=== PATIENT | female | born 1985 | race Caucasian/White ===

== ENCOUNTER → 2020-07-06 09:52 | Outpatient (CLI) | payer BC, SELFPAY ==
--- NOTE | ~2020-07-06 | XR_ITS ---
XR foot RT min 3V DATE: 07/06/2020 10:09 INDICATION: Right foot pain TECHNIQUE: 4 views COMPARISON: None FINDINGS: There is an acute nondisplaced transverse linear fracture through the metaphyseal area of t he proximal phalanx of the fifth toe. There is no angulation. No other fracture or dislocation is detected. IMPRESSION: Nondisplaced acute fracture of metaphysis of proximal phalanx of fifth toe Reviewed, dictated and finalized at location B. IMPRESSION: Nondisplaced acute fracture of metaphysis of proximal phalanx of fi fth toe
== END ==
PROVIDERS: PCP Pediatrics; Visit Provider Nurse Practitioner Family
DX: S92.514A Nondisplaced fracture of proximal phalanx of right lesser toe(s), initial encounter for closed fracture (principal); X58.XXXA Exposure to other specified factors, initial encounter
CPT/HCPCS: 73630

== ENCOUNTER → 2021-02-09 02:07 | Outpatient (CLI) | payer OTHER, SELFPAY ==
[2021-02-09 19:24] LABS: SARS-CoV-2 RNA PCR Negative
== END ==
PROVIDERS: Visit Provider Obstetrics & Gynecology
DX: Z01.812 Encounter for preprocedural laboratory examination (principal); Z20.822 Contact with and (suspected) exposure to COVID-19
CPT/HCPCS: 36415; 80048; 85027; 85610; 85730; C9803; U0003; U0005

== ENCOUNTER 2021-02-09 09:24 | Outpatient (CLI) | payer OTHER, SELFPAY ==
[2021-02-09 10:04] LABS: Hematocrit 39.5 % (37.0-47.0); Hemoglobin 13.6 g/dL (12.0-15.0); Mean Corpuscular HGB Conc 34.4 g/dl (32-36); Mean Corpuscular Hemoglobin 31.4 pg (26-34); Mean Corpuscular Volume 91.2 fl (80-100); Platelet Count Result 325 k/mm3 (150-375); Red Blood Count 4.33 M/mm3 (4.2-5.4); Red Cell Distribution Width 13.2 % (11.5-14.5); White Blood Count 7.5 K/mm3 (4.5-10.0)
[2021-02-09 10:17] LABS: Anion Gap 4 mmol/L (8-16); Blood Urea Nitrogen 12 mg/dL (7-17); Calcium 9.5 mg/dL (8.4-10.2); Carbon Dioxide 30 mmol/L (22-30); Chloride 104 mmol/L (98-107); Estimated Glomerular Filt Rate > 60; Glucose 83 mg/dL (65-105); Potassium 4.5 mmol/L (3.4-5.0); Sodium 138 mmol/L (137-145)
[2021-02-09 10:27] LABS: INR 0.9; Prothrombin Time 12.5 Seconds (11.1-14.7)
[2021-02-09 10:28] LABS: Partial Thromboplastin Time 25.7 SECONDS (22.3-36.8)
== END 2021-02-09 09:25 | disposition home or self-care (01) ==
LOC: ANHSURGERY 09:31
PROVIDERS: Anesthesiology; PCP Pediatrics; Visit Provider Obstetrics & Gynecology
DX: Z01.818 Encounter for other preprocedural examination (principal); N18.9 Chronic kidney disease, unspecified; R10.2 Pelvic and perineal pain
CPT/HCPCS: 36415; 80048; 85027; 85610; 85730

== ENCOUNTER 2021-02-12 01:47 | Day surgery (SDC) | payer OTHER, SELFPAY ==
[2021-02-04 17:17] VITALS: BMI 19.9
--- NOTE | 2021-02-11 09:13 | WPDANESEPPF ---
Anes - Initial Pre Proc Eval Procedure: Operation Date: 02/12/21 12:00 Proposed Procedures p Total Laparoscopic Hysterectomy - Addis Fay MD s Anterior Repair, Cystoscopy - Addis Fay MD Date/Time: 02/11/21 09:13 Surgeon: Addis Fay MD Pre Op Diagnosis: pelvic pain Patient Data Age: 35 Gender: F Height: 1.68 m Weight: 56 kg Allergies Allergy/AdvReac Type Severity Reaction Status Date / Time bacitracin Allergy Severe HIVES, Verified 02/12/21 10:29 WOUND NECROSIS neomycin Allergy Severe HIVES, Verified 02/12/21 10:29 WOUND NECROSIS balsam barry Allergy HIVES, Verified 02/12/21 10:29 WOUND NECROSIS nickel Allergy HIVES, Verified 02/12/21 10:29 WOUND NECROSIS propolis (bee glue) Allergy HIVES, Verified 02/12/21 10:29 WOUND NECROSIS SHELLAC Allergy HIVES, Uncoded 02/04/21 16:48 WOUND NECROSIS Home Medications Medication Instructions Recorded Confirmed Type Probiotic Blend 1 cap PO DAILY 09/30/19 02/12/21 History elderberry fruit and flower 1 cap PO DAILY 09/30/19 02/12/21 History multivitamin 1 tablet PO DAILY 09/30/19 02/12/21 History omega 3-pch-mma-fish oil [Fish Oil] 1 cap PO DAILY 09/30/19 02/12/21 History spironolactone 150 mg PO DAILY 09/30/19 02/12/21 History dexmethylphenidate [Focalin XR] 20 mg PO DAILY PRN 02/04/21 02/12/21 History trazodone 50 mg PO HS 02/04/21 02/12/21 History Patient hx anesthesia problems: none Family hx anesthesia problems: none PMFSH Past Medical History Medical History (Updated 02/11/21 @ 09:14 by Mckay Floyd DO) ADD (attention deficit disorder) Breast CA 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 Surgical History Surgical History (Updated 02/11/21 @ 09:14 by Mckay Floyd DO) History of bilateral mastectomy Social History Social History (System 01/22/21 @ 10:11 by Nicole Gallagher) Smoking packs per day: 1 Smoking cigarettes per day: 20.0 Years smoked: 10 Smoking pack-years: 10.00 Smoking status: Current some day smoker Tobacco type: cigarettes Spiritual care concerns: No Anes - Eval Final PreProcedure Day of Procedure 02/11/21 09:13 Patient weight: thin Heart: regular rate and rhythm Lungs: clear to auscultation and normal air movement Airway: Mallampati scale class II Neurological: alert and oriented Last oral intake: >/= 8 hours ASA classification: III Emergent: no Anesthetic plan: proceed Anesthesia type and monitoring: general ETT and standard monitoring Informed Consent: The patient's anesthetic plan and its attendant risks and benefits were discussed with the patient/family/POA. Questions were solicited and answers provided to the satisfaction of the patient/family/POA.
[2021-02-12] VITALS (10 sets, daily range): BP systolic 106–123; BP diastolic 54–74; PULSE 59–80; RESP 12–19; TEMP 36.2–37.3; O2SAT 100
[2021-02-12] MEDS: ACETAMINOPHEN 500 MG TABLET 1000 MG PO (10:36)
[2021-02-12] MEDS: KETOROLAC 15 MG/ML VIAL (*BKC) IV PUSH (10:49)
[2021-02-12] MEDS: LACTATED RINGERS 1,000 ML 30 ML IV CONT ×2 (10:50→16:30)
--- NOTE | 2021-02-12 11:57 | SUR.PREOP ---
Dr. Floyd notified that patient has earrings in that she is unable to remove. Removal waiver signed.
--- NOTE | 2021-02-12 12:17 | WPDHPUPDATE1 ---
History and Physical Update Update Date/Time: 02/12/21 12:17 History and Physical has been reviewed, including an updated exam of the patient. There are NO changes in the patient's condition. Risks, benefits, and alternatives have been discussed and questions answered. Patient agrees to proceed with procedure.
--- NOTE | 2021-02-12 12:22 | PM.HPGS ---
History of Present Illness History of Present Illness Consent: Risks, benefits, and alternatives have been discussed and questions answered. Patient agrees to proceed with procedure. Chief complaint: pelvic pain Narrative: Barbra Sanchez is a 35 year old female here for scheduled surgery. Has pelvic pain and vaginal prolapse. Discussed risk/benefits/alternatives discussed. Review of Systems Review of Systems: All systems reviewed & are unremarkable except as noted in HPI and below Constitutional: Constitutional: Reports as per HPI Eyes: Eyes: Reports no additional eye complaints ENT: Reports system reviewed and no additional complaints, except as documented Cardiovascular: Cardiovascular: Reports as per HPI and Reports no additional cardiovascular complaints Respiratory: Respiratory: Reports as per HPI and Reports no additional respiratory complaints Gastrointestinal: Gastrointestinal: Reports as per HPI Genitourinary: Genitourinary: Reports as per HPI Musculoskeletal: Musculoskeletal: Reports no additional musculoskeletal complaints Integumentary/Breasts: Skin/Breast: Reports system reviewed and no additional complaints, except as docu Neurologic: Reports system reviewed and no additional complaints, except as documented Psychiatric: Psychiatric: Reports no additional psychiatric complaints [facility] Past Medical History Medical History ADD (attention deficit disorder) Breast CA 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 Surgical History Surgical History History of bilateral mastectomy Social History Social History Smoking packs per day: 1 Smoking cigarettes per day: 20.0 Years smoked: 10 Smoking pack-years: 10.00 Smoking status: Current some day smoker Tobacco type: cigarettes Spiritual care concerns: No Meds Home Medications and Allergies Home Medications Medication Instructions Recorded Confirmed Type Probiotic Blend 1 cap PO DAILY 09/30/19 02/12/21 History elderberry fruit and flower 1 cap PO DAILY 09/30/19 02/12/21 History multivitamin 1 tablet PO DAILY 09/30/19 02/12/21 History omega 5-xme-gzf-fish oil [Fish Oil] 1 cap PO DAILY 09/30/19 02/12/21 History spironolactone 150 mg PO DAILY 09/30/19 02/12/21 History dexmethylphenidate [Focalin XR] 20 mg PO DAILY PRN 02/04/21 02/12/21 History trazodone 50 mg PO HS 02/04/21 02/12/21 History Allergies Allergy/AdvReac Type Severity Reaction Status Date / Time bacitracin Allergy Severe HIVES, Verified 02/12/21 10:29 WOUND NECROSIS neomycin Allergy Severe HIVES, Verified 02/12/21 10:29 WOUND NECROSIS balsam barry Allergy HIVES, Verified 02/12/21 10:29 WOUND NECROSIS nickel Allergy HIVES, Verified 02/12/21 10:29 WOUND NECROSIS propolis (bee glue) Allergy HIVES, Verified 02/12/21 10:29 WOUND NECROSIS SHELLAC Allergy HIVES, Uncoded 02/04/21 16:48 WOUND NECROSIS Vital Signs Vital Signs - 24 hr 02/12/21 10:58 Temperature 37.3 C Pulse Rate 60 Respiratory Rate 18 Blood Pressure 106/61 Pulse Oximetry 100 Exam Const: General: cooperative, healthy appearing and comfortable HENMT: Head: normal to inspection, normocephalic and atraumatic General nose exam: Normal external nose present and Normal nares present Face and sinus: normal facial exam Mouth: Yes Normal oral and palatal mucosa present Eyes: General: appearance normal, both eyes and all related structures Neck: Neck: normal visual inspection Chest: Chest palpation & inspection: normal inspection of the chest Resp: Effort & Inspection: normal respiratory effort and able to speak in complete sentences Cardio: Jugular venous distension: no JVD Palpation: normal PMI GI: Inspection: normal to inspection GI Palp: N
[2021-02-12] MEDS: ceFAZolin 2 GM/D5W 50 ML 2 GM/50 ML BAG IVPB (12:32)
[2021-02-12] MEDS: BUPIVACAINE/EPINEPHRINE 0.5% 30 ML VIAL INFILTRATE (14:21)
[2021-02-12] MEDS: KETOROLAC 30 MG/ML VIAL (*BKC) IV PUSH (14:50)
--- NOTE | 2021-02-12 15:10 | PM.PROC ---
Procedure Note - Detailed Date of procedure: 02/12/21 Pre-op diagnosis: pelvic pain Post-op diagnosis: same Procedure performed: Total laparoscopic hysterectomy with anterior repair and cystoscopy Description of procedure: Taken to operating room where general anesthesia was found to be adequate. She was prepared and draped in the dorsal supine position in [facility]. A speculum was used to visualize the cervix and a single toothed tenaculum placed on the anterior lip. 2 stay sutures were placed on the sides of the cervix and the uterus sounded to 7cm. So the appropriate stem was selected and affixed to the medium RFED cup and the Kisha was placed in the cervix. The speculum removed and tip ensured to be within the cavity. The sutures were tied around the KISHA cup to keep in place and the intrauterine balloons and vaginal occluder balloons were insufflated. Daily catheter was inserted and attention was then turned to the umbilicus. The umbilicus was injected with 0.5% marcaine with epinephrine in the infraumbilical fold. An incision was made in previous incision and veres needle easily inserted into the abdominal cavity after tenting the skin. Saline drop test was positive and intraabdominal entry pressure was -2mmHg. She was insufflated to 14mmHg and 5mm port placed with optical entry. She was then placed in Trendelenberg and pelvis visualized. There was a left ovarian cyst, follicular in nature, however the right ovary was normal. A suprapubic port was placed in a previous incision as well as a left lower quadrant port by injecting the skin with 0.5% marcaine with epinephrine, incising with a scalpel and 5mm ports placed with direct visualization. A 5mm ligasure used to cauterize the uteroovarian ligament on the left, then across the round ligament, then trhough the broad ligament all with good hemostasis. Once I reached the uterine side wall, the anterior and posterior leafs were opened up and the uterine artery skeletonized. Similarly this was done on the right. The anterir and posterior leaf incisions were met in the midline on both sides and the peritoneum pulled over the Fred cup. The J hook used to dissect the bladder down further to the visceropelvic fascia. Then the J hook used to make a circumferential incision at the cephalad edge of the FRED cup palpable through the tissue. Once the uterus and cervix was amputated, it was pulled through the vaginal incision with ease. There was no significant bleeding noted. So I then went vaginally and sutured the cuff closed with 5 figure of 8's. Cystoscopy was then performed and the bladder was intact and bilateral ureteral jets noted. I then started the anterior repair where the vesicourethral junction was grasp with Allis clamps then the mid portion of the cystocele grasp. 0.5% marcaine with epinephrine used to undermine the midline and a scalpel used to incise in the midline. The metzembaum scissors used to dissect the bladder off the vaginal epithelium and dissect the bladder off laterally. Combination of sharp and blunt dissection was used. Midline was incised further to the proximal most part of the cystoscele and the bladder further dissected back with blunt and sharp dissection. The bladder was then embricated with multiple layers of 0-vicryl suture. The redundant skin incised and discarded. The edges cauterized with Bovie and reapproximated with O-vicryl suture in several figure of 8 sutures. There was good hemostasis noted. Cystoscopy was again performed and the bladder was all intact and ureteral jets were both noted with strong stream. Vaginal packing placed and daily catheter replaced. The procedure at this point was complete. All sponge lap and needle counts were correct. EBL was <50cc. Anesthesia: GETA Surgeon: Addis Fay MD Estimated blood loss (mL): 50 Drains: No Packing: Yes (vaginal packing) Pathology: yes (uterus and cervix) Complications: No immediate complications
[2021-02-12] MEDS: fentaNYL CITRATE INJ (*CRX) 100 MCG/2 ML VIAL 25 MCG IV PUSH ×3 (15:21→15:50)
[2021-02-12] MEDS: diphenhydrAMINE HCl INJ 50 MG/ML VIAL 25 MG IV PUSH (15:40)
[2021-02-12] MEDS: diazePAM INJ (*CRX) 10 MG/2 ML SYRINGE 2.5 MG IV PUSH (16:00)
--- NOTE | 2021-02-12 17:35 | SUR.PHASEI ---
0112- Call to Dr. Fay to confirm medication orders for patient. Reviewed orders via telephone with Dr. Fay. Per MD place orders for Toradol, [place], Percocet, Fentanyl, and lidocaine patch, see orders in EMR. Patient's home medications do not need ordered per Dr. Fay with anticipated discharge tonight at 2100.
--- NOTE | 2021-02-12 18:04 | ADMGEN ---
This patient, Barbra Sanchez, was admitted to OB 2nd Floor Room 276-00. Patient/family oriented to hospital policies and general routines including ID bracelet, bed and alarms, visiting hours, pain management, procedures, bathroom and other care routines, personal items, smoking policy, room service/diet, and visiting hours. Information on how to activate the Rapid Response Team has been discussed. Patient/Family are encouraged to report perceived risks to care and to ask questions if they do not understand what they are told or what they should do.
[2021-02-12] MEDS: KETOROLAC 10 MG TABLET PO (18:55)
[2021-02-12] MEDS: SIMETHICONE 80 MG TAB.CHEW (19:40)
[2021-02-12] MEDS: HYDROcodone/acetaminophen (*CRX) 5-325 MG TABLET 1 TAB PO (19:40)
== END 2021-02-12 21:05 | disposition home or self-care (01) ==
LOC: ANHSURGERY 15:45 → ANHOB2 17:56
PROVIDERS: PCP Pediatrics; Visit Provider Obstetrics & Gynecology
PROC: 0UT9FZZ Resection of Uterus, Via Natural or Artificial Opening With Percutaneous Endoscopic Assistance (ICD-10-PCS; CPT 57240; principal; 2021-02-12 12:00)
PROC: (CPT 57260; 2021-02-12 12:00)
DX: R10.2 Pelvic and perineal pain (principal); N80.0 Endometriosis of uterus; F98.8 Other specified behavioral and emotional disorders with onset usually occurring in childhood and adolescence; N18.2 Chronic kidney disease, stage 2 (mild); F17.210 Nicotine dependence, cigarettes, uncomplicated
CPT/HCPCS: 57240; 58570; 88307; 99199; A9270; J0690; J1100; J1170; J1200; J1885; J2250; J2405; J2704; J2710; J3010; J3360; J7120